=== PATIENT | female | born 1965 | race African-American/Black ===

== ENCOUNTER 2019-06-12 11:50 | Emergency (ER) | payer SELFPAY ==
[~2019-06-12] VITALS: Ht 160 cm; Wt 62.0 kg
[2019-06-12 13:07] LABS: BARBITURATES NEGATIVE (NEGATIVE); COCAINE POSITIVE (NEGATIVE); METHADONE NEGATIVE (NEGATIVE); OXCYCODONE POSITIVE (NEGATIVE); TETRAHYDROCANNABIONOL NEGATIVE (NEGATIVE); TRICYLIC ANTIDEPRESSANTS NEGATIVE (NEGATIVE)
[2019-06-12 13:11] LABS: HEMATOCRIT 33.7 % (37.0-47.0); HEMOGLOBIN 10.9 g/dl (12.0-16.0); IMMATURE GRANULOCYTES 0.5 % (0.0-5.0); MEAN CELL VOLUME 86.4 fL CALC (80.0-100.0); MEAN CORPUSCULAR HGB 27.9 pG CALC (26.0-32.0); MEAN CORPUSCULAR HGB CONC 32.3 g/L CALC (32.0-36.0); NEUT# 7.67 thou/uL (2.00-7.15); RED BLOOD COUNT 3.9 mill/uL (4.20-5.60); RED CELL DISTRI WIDTH 16.4 % (11.5-15.5)
[2019-06-12 13:27] LABS: ALBUMIN 3.5 g/dL (3.2-5.0); ALKALINE PHOSPHATASE 144 u/l (38-126); ANION GAP 14 (6-22 (CALC)); BILIRUBIN, TOTAL 0.4 mg/dL (0.0-1.4); BUN 4 mg/dL (7-17); BUN/CREATININE RATIO 7 (12-20 (CALC)); CARBON DIOXIDE 24 mmol/l (22-30); CHLORIDE 103 mmol/l (95-108); CREATININE 0.6 mg/dL (0.5-1.0); GFR > 60 ML/MIN (>=60 (CALC)); GFR FOR AFR.AMER. > 60 ML/MIN (>=60 (CALC)); LIPASE 79 u/l (23-300); POTASSIUM 3.9 mmol/l (3.5-5.1); SGOT/AST 21 u/l (14-36); SODIUM 138 mmol/l (137-146); TOTAL PROTEIN 8.4 g/dL (6.3-8.2)
[2019-06-12 16:49] VITALS: BP 108/53
== END 2019-06-12 16:49 | disposition short-term general hospital (02) | DRG 204 ==
LOC: ED 11:50
DX: R91.8 Other nonspecific abnormal finding of lung field (principal); R59.0 Localized enlarged lymph nodes; F17.210 Nicotine dependence, cigarettes, uncomplicated
CPT/HCPCS: Q9967

== ENCOUNTER 2019-07-09 18:58 | Emergency (ER) | payer MEDICAID ==
[~2019-07-09] VITALS: Ht 160 cm; Wt 64.4 kg
[2019-07-09 20:43] LABS: IMMATURE GRANULOCYTES 0.5 % (0.0-5.0); MEAN CELL VOLUME 86.7 fL CALC (80.0-100.0); MEAN CORPUSCULAR HGB 28.2 pG CALC (26.0-32.0); MEAN CORPUSCULAR HGB CONC 32.6 g/L CALC (32.0-36.0); NEUT# 1.07 thou/uL (2.00-7.15); RED BLOOD COUNT 2.48 mill/uL (4.20-5.60); RED CELL DISTRI WIDTH 14.4 % (11.5-15.5)
[2019-07-09 20:47] LABS: HEMATOCRIT 21.5 % (37.0-47.0)
[2019-07-09 21:07] LABS: ALBUMIN 3.7 g/dL (3.2-5.0); ALKALINE PHOSPHATASE 100 u/l (38-126); BUN 5 mg/dL (7-17); BUN/CREATININE RATIO 9 (12-20 (CALC)); CARBON DIOXIDE 20 mmol/l (22-30); CHLORIDE 99 mmol/l (95-108); CREATININE 0.6 mg/dL (0.5-1.0); ETHYL ALCOHOL 104 mg/dl (0-30); GFR > 60 ML/MIN (>=60 (CALC)); GFR FOR AFR.AMER. > 60 ML/MIN (>=60 (CALC)); SGOT/AST 26 u/l (14-36); SODIUM 137 mmol/l (137-146); TOTAL PROTEIN 8.2 g/dL (6.3-8.2)
[2019-07-09 21:12] LABS: URINE BILIRUBIN - DIPSTICK NEGATIVE (NEGATIVE); URINE BLOOD DIPSTICK NEGATIVE (NEGATIVE); URINE COLOR YELLOW; URINE GLUCOSE - DIPSTICK NEGATIVE (NEGATIVE); URINE KETONE TRACE mg/dL (NEGATIVE); URINE LEUK ESTERASE TRACE (NEGATIVE); URINE NITRITE - DIPSTICK NEGATIVE (Negative); URINE PROTEIN - DIPSTICK NEGATIVE (NEG-TRACE); URINE UROBILINOGEN - DIPSTICK 0.2 E.U./dL (0.2)
[2019-07-09 21:13] LABS: ANION GAP 21 (6-22 (CALC)); BILIRUBIN, TOTAL 0.2 mg/dL (0.0-1.4)
[2019-07-09 21:17] LABS: MYOGLOBIN 36 ng/mL (0 - 62)
[2019-07-09 21:25] LABS: BARBITURATES NEGATIVE (NEGATIVE); COCAINE POSITIVE (NEGATIVE); METHADONE NEGATIVE (NEGATIVE); OXCYCODONE POSITIVE (NEGATIVE); TETRAHYDROCANNABIONOL NEGATIVE (NEGATIVE); TRICYLIC ANTIDEPRESSANTS NEGATIVE (NEGATIVE)
[2019-07-09] MEDS ORDERED: MAGNESIUM296 ML/BTL PO (21:46)
[2019-07-09] MEDS ORDERED: K-DUR/KLOR-CON20 MEQ PO (21:46)
[2019-07-09 22:15] VITALS: BP 105/59
== END 2019-07-09 22:15 | disposition home or self-care (01) ==
LOC: ED 18:58
PROVIDERS: Family Medicine
DX: K52.9 Noninfective gastroenteritis and colitis, unspecified (principal); K59.00 Constipation, unspecified; E87.6 Hypokalemia; C34.92 Malignant neoplasm of unspecified part of left bronchus or lung; F10.10 Alcohol abuse, uncomplicated; F17.210 Nicotine dependence, cigarettes, uncomplicated; Z79.899 Other long term (current) drug therapy

== ENCOUNTER 2019-09-24 | Emergency (ER) | payer MEDICAID ==
[~2019-09-24] MED LIST: K-DUR/KLOR-CON20 MEQ PO; MAGNESIUM296 ML/BTL PO
[2019-09-24 18:15] LABS: HEMATOCRIT 24.3 % (37.0-47.0); HEMOGLOBIN 8.3 g/dl (12.0-16.0); IMMATURE GRANULOCYTES 1.9 % (0.0-5.0); MEAN CELL VOLUME 88.7 fL CALC (80.0-100.0); MEAN CORPUSCULAR HGB 30.3 pG CALC (26.0-32.0); MEAN CORPUSCULAR HGB CONC 34.2 g/L CALC (32.0-36.0); NEUT# 0.58 thou/uL (2.00-7.15); RED BLOOD COUNT 2.74 mill/uL (4.20-5.60); RED CELL DISTRI WIDTH 14.4 % (11.5-15.5)
[2019-09-24 18:35] LABS: ALBUMIN 3.6 g/dL (3.2-5.0); TOTAL PROTEIN 8.7 g/dL (6.3-8.2)
[2019-09-24 18:37] LABS: BILIRUBIN, TOTAL 0.4 mg/dL (0.0-1.4); CREATININE 1.9 mg/dL (0.5-1.0)
== END 2019-09-24 20:51 ==
PROVIDERS: Family Medicine
DX: D69.6 Thrombocytopenia, unspecified (principal); E87.6 Hypokalemia; R10.9 Unspecified abdominal pain; C34.90 Malignant neoplasm of unspecified part of unspecified bronchus or lung; F17.210 Nicotine dependence, cigarettes, uncomplicated

== ENCOUNTER 2019-10-15 | Emergency (ER) | payer MEDICAID ==
[2019-10-15 16:47] LABS: POTASSIUM 3.5 mmol/l (3.5-5.1)
[2019-10-15 16:50] LABS: HEMATOCRIT 21.6 % (37.0-47.0); HEMOGLOBIN 7.3 g/dl (12.0-16.0); MEAN CELL VOLUME 86.1 fL CALC (80.0-100.0); MEAN CORPUSCULAR HGB 29.1 pG CALC (26.0-32.0); MEAN CORPUSCULAR HGB CONC 33.8 g/L CALC (32.0-36.0); RED BLOOD COUNT 2.51 mill/uL (4.20-5.60); RED CELL DISTRI WIDTH 14.2 % (11.5-15.5)
[2019-10-15 16:51] LABS: IMMATURE GRANULOCYTES 23.1 % (0.0-5.0); NEUT# 0.04 thou/uL (2.00-7.15)
[2019-10-15 16:52] LABS: CREATININE 4.1 mg/dL (0.5-1.0)
[2019-10-15] MEDS ORDERED: DIFLUCAN100 M1 PO ×2 (17:24→17:57)
[2019-10-16] MEDS ORDERED: TRAMADOL HYDROC50 MG PO (16:55)
== END 2019-10-15 18:05 | disposition home or self-care (01) ==
PROVIDERS: Family Medicine
DX: D70.9 Neutropenia, unspecified (principal); E87.6 Hypokalemia; B37.0 Candidal stomatitis; C34.92 Malignant neoplasm of unspecified part of left bronchus or lung; F17.210 Nicotine dependence, cigarettes, uncomplicated
CPT/HCPCS: J1442; J1447

== ENCOUNTER 2019-10-16 | Emergency (ER) | payer MEDICAID ==
[~2019-10-16] MED LIST changes: +DIFLUCAN100 M1 PO
[2019-10-16 16:48] LABS: HEMATOCRIT 19.4 % (37.0-47.0); HEMOGLOBIN 6.4 g/dl (12.0-16.0); MEAN CELL VOLUME 87.8 fL CALC (80.0-100.0); PLATELET COUNT 27 thou/uL (130-400); RED BLOOD COUNT 2.21 mill/uL (4.20-5.60); RED CELL DISTRI WIDTH 14.4 % (11.5-15.5)
[2019-10-16] MEDS ORDERED: TRAMADOL HYDROC50 MG PO (16:55)
[2019-10-16 17:20] LABS: ALKALINE PHOSPHATASE 179 u/l (38-126); ANION GAP 20 (6-22 (CALC)); BUN 56 mg/dL (7-17); BUN/CREATININE RATIO 14 (12-20 (CALC)); CARBON DIOXIDE 15 mmol/l (22-30); CHLORIDE 105 mmol/l (95-108); GFR 12 ML/MIN (>=60 (CALC)); GFR FOR AFR.AMER. 14 ML/MIN (>=60 (CALC)); POTASSIUM 3.7 mmol/l (3.5-5.1); SGOT/AST 53 u/l (14-36); SODIUM 136 mmol/l (137-146); TOTAL PROTEIN 7.4 g/dL (6.3-8.2)
[2019-10-16 17:32] LABS: MYOGLOBIN 36 ng/mL (0 - 62)
[2019-10-16 19:00] VITALS: BP 115/56
[2019-10-16 19:27] VITALS: BP 120/56
== END 2019-10-16 19:43 ==
PROVIDERS: Emergency Medicine
DX: D70.9 Neutropenia, unspecified (principal); J18.9 Pneumonia, unspecified organism; N19 Unspecified kidney failure; C34.92 Malignant neoplasm of unspecified part of left bronchus or lung; F17.200 Nicotine dependence, unspecified, uncomplicated; Z79.899 Other long term (current) drug therapy
CPT/HCPCS: J1442; J1447; P9016